=== PATIENT | female | born 1980 | race Caucasian/White ===

== ENCOUNTER → 2017-04-06 | Outpatient (CLI) | payer OTHER ==
[~2017-04-06] MED LIST: AMOX500C2 PO; AZIT250T PO; CYCL10TA9 PO; DIET PILL PO; HYDR-3714 PO; HYDR-3812 PO; HYDR-757 PO; IBP800T PO; IBUP800T26 PO; LORA1TAB PO; OXYC1TAB16 GT; PHEN-483 PO; PRD20T PO
--- NOTE | 2017-04-06 18:20 | Diagnostic Imaging Report ---
PROCEDURE: MRI lumbar spine. TECHNIQUE: Multiplanar, multisequence MRI of the lumbar spine was performed without contrast. INDICATION: Right sciatica and leg pain. No known injuries. EXAMINATION: MRI of the lumbar spine without contrast 04/06/2017. COMPARISON: Comparison made to 11/06/2014. FINDINGS: Multiplanar, multisequence MRI of the lumbar spine demonstrates normal height and alignment of the vertebral bodies. The tip of the conus is unremarkable in appearance. It lies at the T12-L1 level. At L1-L2, there is bilateral facet hypertrophy. No significant central stenosis is appreciated. The neural foramina appear patent. At the L2-L3 level, there is bilateral mild to moderate neural foraminal narrowing. Disc desiccation is noted with minimal broad-based bulging disc material present. No significant central stenosis is appreciated. At L3-L4, there is broad-based bulging disc material with disc desiccation. Bilateral facet and the ligamentum flavum hypertrophy is noted. Findings cause minimal flattening of the ventral thecal sac. There is bilateral neural foraminal narrowing which appears moderate. L4-L5: There is a left paracentral broad-based bulging disc containing an annular tear. Bilateral facet and ligamentum flavum hypertrophy is noted. There is flattening of the ventral thecal sac but no significant central stenosis. The neural foramina demonstrate bilateral moderate narrowing. At L5-S1, there is disc desiccation. There is intervertebral disc space narrowing with a broad-based right paracentral bulging disc containing an annular tear. Minimal bilateral facet hypertrophy is seen. No central stenosis is appreciated. Bilateral neural foraminal narrowing is noted which appears moderate. There are cystic changes bilaterally at this level likely synovial cyst. There are also bilateral pars defects. However, no significant listhesis is noted, if anything there may be minimal grade 1 anterolisthesis of L5 on S1. These findings appear stable from previous. Visualized intra-abdominal and pelvic structures demonstrate a cystic area in the visualized left adnexa, likely ovarian but incompletely imaged. Remaining visualized intraabdominal structures are unremarkable. IMPRESSION: 1. Multilevel degenerative findings as described above with fairly stable appearance from previous imaging. Bilateral pars defects at L5-S1 causing minimal grade 1 anterolisthesis of L5 on S1. 2. Cystic area in the left adnexa likely ovarian. Pelvic sonography could be performed if clinically warranted. Dictated by: Dictated on workstation # [id number]
== END ==
LOC: RAD 17:04
PROVIDERS: ATTEND Nurse Practitioner Family
DX: M51.26 Other intervertebral disc displacement, lumbar region (principal); M47.816 Spondylosis without myelopathy or radiculopathy, lumbar region
CPT/HCPCS: 72148

== ENCOUNTER 2017-07-04 13:26 | Emergency (ER) | payer OTHER ==
[~2017-07-04] VITALS: Ht 157.5 cm; Wt 86.2 kg
[2017-07-04] MEDS ORDERED: RT-ALBUTEROL/IPRATROPIUM 3 ML (DUONEB) VIAL INH ONE (13:45)
[2017-07-04] MEDS ORDERED: methylPREDNISolone 125 MG (Solu-MEDROL) VIAL IVP ONE (13:45)
--- NOTE | 2017-07-04 13:51 | ED Cough/URI ---
General Chief Complaint: Cough/Cold/Flu Symptoms Stated Complaint: SOB History of Present Illness Time seen by provider: 13:30 Initial Comments Evaluation for productive cough, SOA and wheezing. The patient states that she' s had these symptoms for 2-3 days and they are getting worse instead of better. She has a nebulizer machine at home for her daughter who is asthmatic and has given herself albuterol treatments. Last one was at 1100 today. She's tried taking Tylenol cough & cold and DayQuil with no improvement in symptoms. She reports using tobacco products but hasn't decreased since 6. Timing/Duration: getting worse Severity/Quality: productive cough Prior Episodes/Possible Cause: occasional episodes Modifying Factors: Improves With Albuterol Nebulizer, Improves With Coughing, Improves With Lying Down, Improves With Rest Associated Symptoms: chest pain/soreness, cough Allergies and Home Medications Allergies Coded Allergies: No Known Drug Allergies (Verified , 08/28/09) Home Medications Guaifenesin/Pseudoephedrne HCl 1 Each Tab.er.12h, 1 EACH PO BID, #20 Ref 0 Prescribed by: SIDNEY STEPHENS on 07/04/17 1446 Prednisone 5 Mg Tablet, 10 MG PO BID, #20 Ref 0 Prescribed by: SIDNEY STEPHENS on 07/04/17 1446 Constitutional: no symptoms reported, see HPI EENTM: nose congestion, other (ears congested bilaterally) Respiratory: see HPI, cough, dyspnea on exertion, wheezing Cardiovascular: no symptoms reported, see HPI Gastrointestinal: no symptoms reported, see HPI Genitourinary: no symptoms reported, see HPI : No (history tubal ligation) All Other Systems Reviewed Negative Unless Noted: Yes Past Dmqzwjr-Rlnphn-Jddunw Hx Patient Social History Recent Foreign Travel: No Contact w/Someone Who Travel: No Recent Hopitalizations: No Immunizations Up To Date Tetanus Booster (TDap): Unknown Seasonal Allergies Seasonal Allergies: Yes Surgeries HX Surgeries: Yes Surgeries: Orthopedic, Tubal Ligation Respiratory Hx Respiratory Disorders: Yes (tobaccoism) Cardiovascular Hx Cardiac Disorders: No Neurological Hx Neurological Disorders: No Reproductive System Hx Reproductive Disorders: No Sexually Transmitted Disease: No HIV/AIDS: No 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 Genitourinary Hx Genitourinary Disorders: No Gastrointestinal Hx Gastrointestinal Disorders: No Musculoskeletal Hx Musculoskeletal Disorders: No Endocrine Hx Endocrine Disorders: No HEENT HX ENT Disorders: No Cancer Hx Cancer: No Psychosocial Hx Psychiatric Problems: No Integumentary HX Skin/Integumentary Disorder: No Blood Transfusions Hx Blood Disorders: No Adverse Reaction to a Blood Tr: No Reviewed Nursing Assessment Reviewed/Agree w Nursing PMH: Yes Family Medical History Significant Family History: Cancer Physical Exam Vital Signs Vital Sign - Last 12Hours 07/04/17 13:43 Temp 97.5 Pulse 86 Resp 18 B/P (MAP) 142/99 Pulse Ox 95 O2 Delivery Room Air Capillary Refill : General Appearance: WD/WN, no apparent distress HEENT: PERRL/EOMI, pharynx normal, TM abnormal (R), TM abnormal (L), No pharyngeal erythema, No tonsillar exudate, other (TMs with bilateral clear effusion.) Respiratory: chest non-tender, lungs clear (bilateral upper lobes), normal breath sounds, wheezing (bilateral lower lobes), other (audible wheezing with breathing.) Cardiovascular: normal peripheral pulses, regular rate, rhythm, no edema, no murmur Gastrointestinal: normal bowel sounds, non tender, soft Extremities: normal range of motion, non-tender, normal inspection, no calf tenderness, normal capillary refill Neurologic/Psychiatric: no motor/sensory deficits, alert, normal mood/affect, oriented x 3 Skin: normal color, warm/dry Lymphatic: no adenopathy Progress/Results/Core Measures Results/Orders Lab Results Laboratory Tests Test 07/04/17 14:00 Range/Units White Blood Count 11.5 H 4.3-11.0 10^3/uL Red Blood Count 4.62 4.35-5.85 10^6/uL Hemoglobin 14.4 11.5-16.0 G/DL Hematocrit 43 35-52 % Mean Corpuscular Volume 94 80-99 FL Mean Corpuscular Hemoglobin 31 25-34 PG Mean Corpuscular Hemoglobin Concent 33 32-36 G/DL Red Cell Distribution Width 13.7 10.0-14.5 % Platelet Count 264 130-400 10^3/uL Mean Platelet Volume 11.5 H 7.4-10.4 FL Neutrophils (%) (Auto) 64 42-75 % Lymphocytes (%) (Auto) 25 12-44 % Monocytes (%) (Auto) 9 0-12 % Eosinophils (%) (Auto) 2 0-10 % Basophils (%) (Auto) 1 0-10 % Neutrophils # (Auto) 7.3 1.8-7.8 X 10^3 Lymphocytes # (Auto) 2.8 1.0-4.0 X 10^3 Monocytes # (Auto) 1.1 H 0.0-1.0 X 10^3 Eosinophils # (Auto) 0.2 0.0-0.3 10^3/uL Basophils # (Auto) 0.1 0.0-0.1 10^3/uL Sodium Level 137 135-145 MMOL/L Potassium Level 3.9 3.6-5.0 MMOL/L Chloride Level 105 98-107 MMOL/L Carbon Dioxide Level 22 21-32 MMOL/L Anion Gap 10 5-14 MMOL/L Blood Urea Nitrogen 13 7-18 MG/DL Creatinine 0.76 0.60-1.30 MG/DL Estimat Glomerular Filtration Rate > 60 BUN/Creatinine Ratio 17 Glucose Level 88 70-105 MG/DL Calcium Level 9.4 8.5-10.1 MG/DL Total Bilirubin 0.2 0.1-1.0 MG/DL Aspartate Amino Transf (AST/SGOT) 19 5-34 U/L Alanine Aminotransferase (ALT/SGPT) 25 0-55 U/L Alkaline Phosphatase 70 40-136 U/L Total Protein 7.6 6.4-8.2 GM/DL Albumin 4.0 3.2-4.5 GM/DL My Orders Orders - SIDNEY STEPHENS Cbc With Automated Diff (07/04/17 13:37) Comprehensive Metabolic Panel (07/04/17 13:37) Chest Pa/Lat (2 View) (07/04/17 13:37) Albuterol/Ipra Inhalation Soln (Duoneb I (07/04/17 13:45) Svn Sm Volume Nebulizer Rt-Rfs (07/04/17 13:37) Methylprednisolone Sod Succ (Solu-Medrol (07/04/17 13:45) Medications Given in ED Current Medications Medications Dose Ordered Sig/Oleg Route Start Time Stop Time Status Last Admin Dose Admin Albuterol/ Ipratropium 3 ml ONCE ONCE INH 07/04/17 13:45 07/04/17 13:46 DC 07/04/17 13:46 3 ML Methylprednisolone Sodium Succinate 125 mg ONCE ONCE IVP 07/04/17 13:45 07/04/17 13:46 DC 07/04/17 14:00 125 MG Vital Signs/I&O Vital Sign - Last 12Hours 07/04/17 07/04/17 07/04/17 13:43 13:46 13:50 Temp 97.5 Pulse 86 Resp 18 B/P (MAP) 142/99 Pulse Ox 95 96 O2 Delivery Room Air Room Air Room Air Progress Note : Time: 13:30 Progress Note Initial evaluation completed, recommended DuoNeb treatment with RT, labs and reevaluation. Solu-Medrol 125 mg IV. 1400 patient reports some improvement since having breathing treatment. Labs essentially normal. Chest x-ray clear. 1430 improve air movement upon auscultation bilateral lung nunez. Discharge planning discussed with patient, questions answered and she agreed with this plan. Diagnostic Imaging Diagonstic Imaging: Xray Plain Films/CT/US/NM/MRI: chest Comments NAME: RUDDY NGUYEN [facility] REC#: [id number] PHYSICIAN: SIDNEY STEPHENS CC: SIDNEY STEPHENS; JANEL ROSENTHAL MD Page 1 of 1 RADIOLOGY REPORT VIA [facility], [facility]. [place], [place] CC: SIDNEY STEPHENS; JANEL ROSENTHAL MD Page 1 of 1 RADIOLOGY REPORT NAME: PATRICKRUDDY B [facility] REC#: [id number] PT STATUS: REG ER : 1980 PHYSICIAN: SIDNEY STEPHENS ADMIT DATE: 07/04/17/ER Signed Date of Exam: 07/04/17 CHEST PA/LAT (2 VIEW) PA and lateral views of the chest Indication: Dry cough Findings: The lungs are clear. The heart size is normal. There is no effusion or pneumothorax The mediastinum and gabrielle appear unremarkable. Impression: Unremarkable study. Dictated by: Dictated on workstation # [id number] Dict: 07/04/17 143 Trans: 07/04/17 143 Interpreted by: JANEL ROSENTHAL MD Electronically signed by: JANEL ROSENTHAL MD 07/04/171432 Reviewed: Reviewed by Me Departure Impression Impression: Primary Impression: Upper respiratory infection Qualified Codes: J00 - Acute nasopharyngitis [common cold] Additional Impressions: Cough Allergic rhinitis Qualified Codes: J30.2 - Other seasonal allergic rhinitis Disposition: 01 HOME, SELF-CARE Condition: Stable Departure-Patient Inst. Decision time for Depature: 14:15 Referrals: [facility] (PCP/Family) Primary Care Physician Patient Instructions: Cough, Adult (DC), Cough, Runny Nose, and the Common Cold (DC) Add. Discharge Instructions: Decrease tobacco usage. Use aocq-sle-pcermkl allergy medicine as directed (Zyrtec or Claritin) Increase water intake. Take prescribed medication as directed. Use albuterol nebulized treatments every 4-6 hours as needed Return to emergency department if difficulty breathing, fever greater than 101 , new problems or concerns. Follow-up at [facility] if symptoms are not improving in 2-3 days. All discharge instructions reviewed with patient and/or family. Voiced understanding. Scripts Prednisone (Prednisone) 5 Mg Tablet 10 MG PO BID, #20 TAB 0 Refills Prov: SIDNEY STEPHENS 07/04/17 Guaifenesin/Pseudoephedrne HCl (Mucinex D ER 1,200-120 mg Tab) 1 Each Tab.er.12h 1 EACH PO BID, #20 TAB 0 Refills Prov: SIDNEY STEPHENS 07/04/17 SIDNEY STEPHENS Jul 04, 2017 13:51
[2017-07-04 14:09] LABS: BASOPHILS # (AUTO) 0.1 10^3/uL (0.0-0.1); BASOPHILS % (AUTO) 1 % (0-10); EOSINOPHILS # (AUTO) 0.2 10^3/uL (0.0-0.3); EOSINOPHILS % (AUTO) 2 % (0-10); LYMPHOCYTES # (AUTO) 2.8 X 10^3 (1.0-4.0); LYMPHOCYTES % (AUTO) 25 % (12-44); MEAN CORPUSCULAR HEMOGLOBIN 31 PG (25-34); MEAN CORPUSCULAR HGB CONC 33 G/DL (32-36); MEAN CORPUSCULAR VOLUME 94 FL (80-99); MEAN PLATELET VOLUME 11.5 FL (7.4-10.4); MONOCYTES # (AUTO) 1.1 X 10^3 (0.0-1.0); MONOCYTES % (AUTO) 9 % (0-12); NEUTROPHILS # (AUTO) 7.3 X 10^3 (1.8-7.8); NEUTROPHILS % (AUTO) 64 % (42-75); PLATELET COUNT 264 10^3/uL (130-400); RED BLOOD COUNT 4.62 10^6/uL (4.35-5.85); RED CELL DISTRIBUTION WIDTH 13.7 % (10.0-14.5); WHITE BLOOD COUNT 11.5 10^3/uL (4.3-11.0)
[2017-07-04 14:32] LABS: ALANINE AMINOTRANSFERASE 25 U/L (0-55); ANION GAP 10 MMOL/L (5-14); ASPARTATE AMINO TRANSFERASE 19 U/L (5-34); BILIRUBIN,TOTAL 0.2 MG/DL (0.1-1.0); BLOOD UREA NITROGEN 13 MG/DL (7-18); BUN/CREATININE RATIO 17; CALCIUM 9.4 MG/DL (8.5-10.1); CARBON DIOXIDE 22 MMOL/L (21-32); CHLORIDE 105 MMOL/L (98-107); CREATININE SERUM 0.76 MG/DL (0.60-1.30); GFR ESTIMATED > 60; GLUCOSE 88 MG/DL (70-105); POTASSIUM 3.9 MMOL/L (3.6-5.0); SODIUM 137 MMOL/L (135-145); TOTAL PROTEIN 7.6 GM/DL (6.4-8.2)
--- NOTE | 2017-07-04 14:36 | Diagnostic Imaging Report ---
PA and lateral views of the chest Indication: Dry cough Findings: The lungs are clear. The heart size is normal. There is no effusion or pneumothorax The mediastinum and gabrielle appear unremarkable. Impression: Unremarkable study. Dictated by: Dictated on workstation # [id number]
[2017-07-04] MEDS ORDERED: PRED5TAB PO (14:46)
[2017-07-04] MEDS ORDERED: GUAI-365 PO (14:46)
[2017-07-04 14:50] VITALS: BP 140/86
== END 2017-07-04 14:50 | disposition home or self-care (01) ==
LOC: EDUNIT# 13:26 → ER 13:28
DX: J06.9 Acute upper respiratory infection, unspecified (principal); J30.9 Allergic rhinitis, unspecified; Z98.51 Tubal ligation status
CPT/HCPCS: 36415; 71020; 80053; 85025; 94640; 96374; 99282

== ENCOUNTER 2020-01-16 18:19 | Emergency (ER) | payer SELFPAY ==
[~2020-01-16] VITALS: Ht 162 cm; Wt 104.0 kg
[~2020-01-16 18:19] MED LIST changes: +ACHD5005 PO; +GUAI-365 PO; -HYDR-3812 PO; +HYDR-4226 PO; -HYDR-757 PO; +PRED5TAB PO
[2020-01-16] MEDS ORDERED: LIDOCAINE/EPI 2% 1:100,00 (XYLOCAINE) 20 ML VIAL INJ ONE (19:00)
[2020-01-16] MEDS ORDERED: CEPH-507 PO (19:10)
--- NOTE | 2020-01-16 19:12 | ED Upper Extremity ---
General Chief Complaint: Laceration Stated Complaint: LACERATION RT ARM Nursing Triage Note: ARRIVED VIA AMB TO TRIAGE. STATES SHE ACCIDENTLY CUT HER LEFT ARM WITH A SHARP BLADE. DENIES ATTEMPT TO HARM SELF. Nursing Sepsis Screen: No Definite Risk Source: patient Exam Limitations: no limitations History of Present Illness Date Seen by Provider: Jan 16, 2020 Time Seen by Provider: 19:08 Initial Comments Laceration to the dorsal aspect left forearm that she cut with a sharp blade used for trimming eyebrows while trying to prove a point that it wasn't sharp to one of her kids. Onset: just prior to arrival Severity: moderate Pain/Injury Location: left forearm Modifying Factors: Worse With Movement Allergies and Home Medications Allergies Coded Allergies: No Known Drug Allergies (Verified , 08/28/09) Home Medications Guaifenesin/Pseudoephedrne HCl 1 Each Tab.er.12h, 1 EACH PO BID Prescribed by: SIDNEY STEPHENS on 07/04/17 1446 Prednisone 5 Mg Tablet, 10 MG PO BID Prescribed by: SIDNEY STEPHENS on 07/04/17 1446 Patient Home Medication List Home Medication List Reviewed: Yes Review of Systems Constitutional: see HPI EENTM: see HPI Respiratory: no symptoms reported Cardiovascular: no symptoms reported Genitourinary: no symptoms reported Musculoskeletal: see HPI Skin: no symptoms reported Psychiatric/Neurological: No Symptoms Reported Past Ebioylu-Mqmakv-Efkmhq Hx Patient Social History Alcohol Use: Denies Use Recreational Drug Use: No Smoking Status: Unknown if Ever Smoked Recent Foreign Travel: No Contact w/Someone Who Travel: No Recent Infectious Disease Expo: No Recent Hopitalizations: No Immunizations Up To Date Tetanus Booster (TDap): Unknown Seasonal Allergies Seasonal Allergies: Yes Past Medical History Surgeries: Yes Orthopedic, Tubal Ligation Respiratory: Yes (tobaccoism) Cardiac: No Neurological: No Reproductive Disorders: No 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 oz. 86.108047hf; 39.00 BMI Method:Stated General Appearance: WD/WN, no apparent distress Respiratory: no respiratory distress, no accessory muscle use Shoulder: normal inspection, non-tender Elbow/Forearm: Left, soft tissue tenderness (there is a 6 cm laceration down to the saphenous tissue dorsal aspect left forearm proximally. Normal thumbs-up normal I normal wrist extension.) Wrist: Yes normal inspection, Yes non-tender Hand: normal inspection, non-tender ( IS 5) Procedures/Interventions Wound Location: Upper Extremities Wound Length (cm): 6 Wound's Depth, Shape: linear, sub Q Wound Explored: clean Anesthesia: Lidocaine w/ Epi Suture: Prolene Suture Size: 4-0 Number of Sutures: 1 Layer Closure?: 1 Number Deep Layer Sutures: 0 Progress Anesthetized, scrubbed with chlorhexidine/saline solution, closed with one continuous suture. Progress/Results/Core Measures Results/Orders My Orders Orders - RADHA JUDD APRN Lidocaine/Epi 2% 1:100,000 (Xylocaine/Ep (01/16/20 19:00) Vital Signs/I&O 01/16/20 18:30 Temp 37.0 Pulse 101 Resp 16 B/P (MAP) 145/96 (112) Pulse Ox 97 O2 Delivery Room Air Blood Pressure Mean: 112 Departure Impression Primary Impression: Forearm laceration Qualified Codes: S51.812A - Laceration without foreign body of left forearm, initial encounter Disposition: 01 HOME, SELF-CARE Condition: Stable Departure-Patient Inst. Decision time for Depature: 19:09 Referrals: [facility] (PCP/Family) Primary Care Physician Patient Instructions: Laceration Repair With Stitches (DC) Add. Discharge Instructions: 1. Antibiotics as directed 2. Pain medication as directed 3. Follow-up with your doctor next week 4. You can shower starting tomorrow letting water run over this but do not use soap or shampoo on it. Do not apply any petroleum-based ointments or creams on it. Return to ER in 7 days for suture removal. All discharge instructions reviewed with patient and/or family. Voiced understanding. Scripts Cephalexin (Keflex) 500 Mg Capsule 500 MG PO TID, #15 CAP Prov: RADHA JUDD APRN 01/16/20 RADHA JUDD APRN Jan 16, 2020 19:12
[2020-01-16] MEDS ORDERED: RX-HYDROCODONE/APAP 5/325 MG #4 TAB PK PO PRN (19:15)
[2020-01-16] MEDS ORDERED: TETANUS,DIPTH,PERTUSS P/F (BOOSTRIX) 0.5 ML VIAL IM ONE (19:15)
[2020-01-16 19:34] VITALS: BP 145/96
== END 2020-01-16 19:34 | disposition home or self-care (01) ==
LOC: EDUNIT# 18:19 → ER 18:21
DX: S51.812A Laceration without foreign body of left forearm, initial encounter (principal); Z23 Encounter for immunization; Z79.52 Long term (current) use of systemic steroids; W26.8XXA Contact with other sharp object(s), not elsewhere classified, initial encounter
CPT/HCPCS: 12002; 90715

== ENCOUNTER 2020-06-07 09:12 | Emergency (ER) | payer SELFPAY ==
[~2020-06-07] VITALS: Ht 157.5 cm; Wt 97.7 kg
[~2020-06-07 09:12] MED LIST changes: +CEPH-507 PO
[2020-06-07 09:22] VITALS: BP 138/95
[2020-06-07] MEDS ORDERED: AMOX875T2 PO (09:37)
[2020-06-07] MEDS ORDERED: LIDO20SO23 MM (09:37)
[2020-06-07] MEDS ORDERED: TRAM-42 PO (09:37)
--- NOTE | 2020-06-07 09:37 | ED EENT ---
History of Present Illness General Chief Complaint: Dental Problems/Pain Stated Complaint: DENTAL PAIN Source: patient History of Present Illness Date Seen by Provider: Jun 07, 2020 Time Seen by Provider: 09:33 Initial Comments PT ARRIVES VIA POV FROM HOME STATES YESTERDAY, SHE WAS EATING "KETTLE POTATO CHIPS" AND PART OF HER TOOTH BROKE OFF--LEFT UPPER MOLAR EARLY THIS MORNING, AROUND 0400, ANOTHER PIECE OF IT BROKE OFF, AND HAS BEEN HAVING SEVERE PAIN SINCE THEN TOOK 800 MG IBUPROFEN 30 MINUTES AGO, AND 3 TYLENOLS AROUND 0400--NO RELIEF HAS HAD SAME IN THE PAST, BUT HAD IT FIXED BY DENTIST HAS NOT SEEN DENTIST IN A LONG TIME HAS HAD WISDOM TEETH REMOVED IN THE PAST PCP: [facility] Allergies and Home Medications Allergies Coded Allergies: No Known Drug Allergies (Verified , 08/28/09) Home Medications Amoxicillin 875 Mg Tablet, 875 MG PO BID Prescribed by: MOSES CRAWFORD on 06/07/20936 Cephalexin 500 Mg Capsule, 500 MG PO TID Prescribed by: RADHA JUDD on 01/16/20 191 Guaifenesin/Pseudoephedrne HCl 1 Each Tab.er.12h, 1 EACH PO BID Prescribed by: SIDNEY STEPHENS on 07/04/17 144 Lidocaine HCl 15 Ml Solution, 1-2 ML MM [id number] Prescribed by: MOSES CRAWFORD on 06/07/20936 Prednisone 5 Mg Tablet, 10 MG PO BID Prescribed by: SIDNEY STEPHENS on 07/04/17 1446 Tramadol HCl 50 Mg Tablet, 50 MG PO Q4H Prescribed by: MOSES CRAWFORD on 06/07/20936 Patient Home Medication List Home Medication List Reviewed: Yes Review of Systems Review of Systems Constitutional: no symptoms reported Mouth: see HPI : No (BTL) LMP: Jun 07, 2020 Musculoskeletal: no symptoms reported Neurological: No Symptoms Reported Past Yipyukp-Yqvxau-Jmvfyl Hx Past Med/Social Hx: Reviewed and Corrections made Patient Social History Recent Foreign Travel: No Contact w/Someone Who Travel: No Recent Hopitalizations: No Immunizations Up To Date Tetanus Booster (TDap): Unknown Seasonal Allergies Seasonal Allergies: Yes Past Medical History Surgeries: Yes (RIGHT KNEE MENISCUS REPAIR; WISDOM TEETH REMOVED) Orthopedic, Tubal Ligation Respiratory: Yes (tobaccoism) Cardiac: No Neurological: No Reproductive Disorders: No 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 oz. 86.343537te; 39.00 BMI Method:Stated General Appearance: WD/WN, no apparent distress, obese, other (CRYING, HOLDING FINGERS IN MOUTH) Eyes: bilateral eye normal inspection Mouth/Throat: dental tenderness; No excessive drooling, No mandibular swelling, No maxillary swelling; other (LEFT UPPER SECOND MOLAR BROKEN OFF DOWN TO GUM ABELINO E. NO SURROUNDING GUM INFLAMMATION NOTED AT THIS TIME. NO BLEEDING. ) Neck: normal inspection Cardiovascular: regular rate, rhythm Respiratory: normal breath sounds Neurologic/Psychiatric: no motor/sensory deficits, alert, oriented x 3 Skin: normal color, warm/dry Procedures/Interventions Suture Size: 4-0 Progress/Results/Core Measures Results/Orders Vital Signs/I&O 06/07/20 09:22 Temp 36.9 Pulse 113 Resp 20 B/P (MAP) 138/95 (109) Pulse Ox 98 O2 Delivery Room Air Departure Impression Primary Impression: Dental caries Additional Impression: Broken tooth Disposition: 01 HOME, SELF-CARE Condition: Stable Departure-Patient Inst. Referrals: [facility] (PCP/Family) Primary Care Physician Patient Instructions: Fractured Tooth (DC), Dental Pain (DC), Tooth Decay, Adult (DC) Add. Discharge Instructions: OVER THE COUNTER TEMPORARY DENTAL FILLING CONTINUE TYLENOL 1 GRAM AND MOTRIN 800 MG 4 TIMES A DAY FOR PAIN FOLLOW UP WITH [facility] FIRST THING IN THE MORNING All discharge instructions reviewed with patient and/or family. Voiced understanding. Scripts Tramadol HCl (Ultram) 50 Mg Tablet 50 MG PO Q4H for Pain, #20 TAB Prov: MOSES CRAWFORD DO 06/07/20 Lidocaine HCl (Lidocaine HCl Viscous) 15 Ml Solution 1-2 ML MM [id number], #120 ML Prov: MOSES CRAWFORD DO 06/07/20 Amoxicillin (Amoxicillin) 875 Mg Tablet 875 MG PO BID, #20 TAB Prov: MOSES CRAWFORD DO 06/07/20 MOSES CRAWFORD DO Jun 07, 2020 09:37
== END 2020-06-07 09:45 | disposition home or self-care (01) ==
LOC: EDUNIT# 09:12 → ER 09:13
DX: S02.5XXA Fracture of tooth (traumatic), initial encounter for closed fracture (principal); K02.9 Dental caries, unspecified; Z79.52 Long term (current) use of systemic steroids; X58.XXXA Exposure to other specified factors, initial encounter
CPT/HCPCS: 99282